=== PATIENT | female | born 1995 | race African-American/Black ===

== ENCOUNTER 2019-04-25 03:12 | Inpatient (IN) ==
[2019-04-25 03:29] VITALS: BMI 24.1
[2019-04-25 03:29] LABS: BILIRUBIN,URINE NEGATIVE (NEGATIVE); BLOOD/HEMOGLOBIN,URINE 1+ (NEGATIVE); GLUCOSE, URINE NEGATIVE (NEGATIVE); KETONES,URINE 1+ (NEGATIVE); LEUKOCYTE ESTERASE ,URINE 3+ (NEGATIVE); NITRITES,URINE NEGATIVE (NEGATIVE); PROTEIN,URINE 1+ (NEGATIVE); UROBILINOGEN,URINE NORMAL (NORMAL)
[2019-04-25 03:34] LABS: APPEARANCE,URINE CLEAR (CLEAR); BACTERIA,URINE NEGATIVE /HPF (NEGATIVE); COLOR,URINE YELLOW (YELLOW); SQUAMOUS EPITHELIAL CELL,UR FEW /HPF (NEGATIVE)
[2019-04-25] MEDS ORDERED: D5LR 1L W PITOCIN 10 UNITS/L 10 UNITS/1,000 ML BAG IV PRN (04:06)
[2019-04-25] MEDS ORDERED: LR 1000 ML IV 1,000 ML ONE (04:22)
[2019-04-25] MEDS ORDERED: AMPICILLIN VIAL 2 GRAM ONE (04:23)
[2019-04-25] MEDS ORDERED: FENTANYL INJ 100 mcg ONE (04:23)
[2019-04-25] MEDS ORDERED: NS 100 ML IV 100 ML ONE (04:23)
[2019-04-25] MEDS ORDERED: NAROPIN EPIDURAL 0.2% + FENTANYL 90MCG 60 ML EPI ONE (04:23)
[2019-04-25] MEDS ORDERED: D5 1/2 NS 1L W PITOCIN 20 UNITS/L 20 UNITS/1,000 ML BAG IV ONE (04:24)
[2019-04-25] MEDS ORDERED: PITOCIN ONE (04:24)
[2019-04-25] MEDS ORDERED: XYLOCAINE 2% and EPINEPHRINE 1:100,000 ONE (04:26)
[2019-04-25] MEDS ORDERED: XYLOCAINE 1 % (PLAIN) ONE (04:26)
[2019-04-25 04:45] LABS: BASOPHILS # (AUTO) 0.1 X10^3/uL (0.0-0.1); BASOPHILS % (AUTO) 0.4 % (0.2-1.0); EOSINOPHILS # (AUTO) 0.2 x10^3/uL (0.0-0.2); EOSINOPHILS % (AUTO) 1.3 % (0.9-2.9); HEMATOCRIT 34.8 % (36.0-47.0); HEMOGLOBIN 11.3 g/dL (12.0-16.0); LYMPHOCYTES # (AUTO) 2.2 X10^3/uL (1.3-2.9); LYMPHOCYTES % (AUTO) 18.2 % (21.0-51.0); MEAN CORPUSCULAR HEMOGLOBIN 27.4 pg (27.0-34.0); MEAN CORPUSCULAR HGB CONC 32.5 g/dL (33.0-35.0); MEAN CORPUSCULAR VOLUME 84.3 fL (80.0-100.0); MEAN PLATELET VOLUME 7.6 fL (7.4-11.0); MONOCYTES # (AUTO) 1.1 x10^3/uL (0.3-0.8); MONOCYTES % (AUTO) 8.9 % (0.0-13.0); NEUTROPHILS # (AUTO) 8.4 x10^3/uL (2.2-4.8); NEUTROPHILS % (AUTO) 71.2 % (42.0-75.0); PLATELET COUNT 216 X10^3/uL (150.0-450.0); RED BLOOD COUNT 4.13 X10^6/uL (3.5-5.4); RED CELL DISTRIBUTION WIDTH 13.4 % (11.6-16.5); WHITE BLOOD COUNT 11.8 X10^3/uL (3.6-10.0)
[2019-04-25 04:53] LABS: BLOOD UREA NITROGEN 6 mg/dL (7-18); CALCIUM 9.3 mg/dL (8.5-10.1); CARBON DIOXIDE 26.6 mmol/L (21-32); CHLORIDE 103 mmol/L (98-107); SODIUM 138 mmol/L (136-145); eGFR NON BLACK RACES > 60 (>60)
[2019-04-25] MEDS ORDERED: D5 1/2 NS 1000 ML 1,000 ML IV SCH (05:00)
[2019-04-25] MEDS ORDERED: AMPICILLIN VIAL 2 GRAM 2 G in NS 100 ML IV + SPIKE MINIBAG* 100 ML IV SCH (05:00)
[2019-04-25] MEDS: D5 1/2 NS 1000 ML 1,000 ML with PITOCIN 20 UNITS IV SCH ×4 (06:10→23:12)
[2019-04-25] MEDS ORDERED: PHENERGAN INJ 25 MG IM PRN (06:18)
--- NOTE | 2019-04-25 06:24 | DR.OB ---
OB Quick Note - Assessment/Plan Assessment/Plan: Delivery Note COLLECTION MANAGER 04/25/19 at 6:05am Patient complete and pushing. Head delivered over intact perineum. Nuchal cord x 1 reduced. Compound presentation with right hand at face. Nose and mouth bulb suctioned. Body delivered over intact perineum. Cord clamped x 2 and cut. handed to attendant. Cord sent for gases. Placenta delivered spontaneously / intact / 3 vessel cord. No CVX / vaginal / perineal tears noted. Viable male infant, VTX/OA, wt=6'0" and 9/9, stable to NBN. Mother stable to RR. [id number].
[2019-04-25] MEDS ORDERED: ADACEL or BOOSTRIX TDaP VACCINE IM ONE (07:51)
[2019-04-25] MEDS ORDERED: DERMOPLAST SPRAY TOP PRN (07:51)
[2019-04-25] MEDS ORDERED: AMBIEN PO PRN (07:51)
[2019-04-25] MEDS ORDERED: MILK OF MAGNESIA PO PRN (07:51)
[2019-04-25] MEDS ORDERED: AMPICILLIN VIAL 1 GRAM 1 G in NS 50 ML IV + SPIKE MINIBAG* 50 ML IV SCH (09:00)
[2019-04-25] MEDS: ZANTAC PO SCH ×2 (09:48→22:43)
[2019-04-25] MEDS: PRENATAL PLUS PO SCH (09:49)
[2019-04-25] MEDS: MOTRIN TAB 800 MG PO PRN ×2 (09:49→20:31)
[2019-04-25] MEDS ORDERED: BETADINE SOLN TOP PRN (21:24)
[2019-04-26 05:29] LABS: HEMATOCRIT 30.8 % (36.0-47.0); HEMOGLOBIN 9.8 g/dL (12.0-16.0)
[2019-04-26] MEDS: MOTRIN TAB 800 MG PO PRN ×2 (06:32→22:00)
[2019-04-26] MEDS: D5 1/2 NS 1000 ML 1,000 ML with PITOCIN 20 UNITS IV SCH ×2 (06:33)
[2019-04-26] MEDS: PRENATAL PLUS PO SCH (10:10)
[2019-04-26] MEDS: ZANTAC PO SCH ×2 (10:10→20:40)
[2019-04-26] MEDS: FERROUS GLUCONATE PO SCH (17:33)
[2019-04-26] MEDS: COLACE CAP 100 MG PO SCH (20:40)
[2019-04-27] MEDS: FERROUS GLUCONATE PO SCH (06:07)
[2019-04-27] MEDS: ZANTAC PO SCH (08:57)
[2019-04-27] MEDS: PRENATAL PLUS PO SCH (08:57)
[2019-04-27] MEDS: COLACE CAP 100 MG PO SCH (08:57)
[2019-04-27 11:27] VITALS: BP 107/73
== END 2019-04-27 13:00 | disposition home or self-care (01) | DRG 807 ==
LOC: ER 03:12 → LD 04:00 → MED/SURG 07:49
PROVIDERS: ADMIT Specialist; ATTEND Specialist
DX: Z3A.38 38 weeks gestation of pregnancy; Z37.0 Single live birth; O80 Encounter for full-term uncomplicated delivery
CPT/HCPCS: 36415; 59409; 80048; 80307; 81001; 85014; 85018; 85025; 86592; 86850; 86900; 86901; 99284; A4216; A4222; S0197; G0434; J0290; J2001; J2590; J3010; J7050; J7120; S5010

== ENCOUNTER 2021-01-28 15:50 | Inpatient (IN) ==
[2021-01-28 15:54] VITALS: BMI 24.4
[2021-01-28] MEDS ORDERED: NS 100 ML IV 100 ML IV ONE (16:05)
[2021-01-28] MEDS ORDERED: AMPICILLIN VIAL 2 GRAM ONE (16:05)
[2021-01-28] MEDS ORDERED: REGLAN INJ 10 MG VIAL IVP PRN (16:10)
[2021-01-28] MEDS ORDERED: PHENERGAN INJ 25 MG IM PRN ×2 (16:10→18:16)
[2021-01-28] MEDS ORDERED: PITOCIN IVP ONE (16:10)
[2021-01-28] MEDS ORDERED: D5LR 1L W PITOCIN 10 UNITS/L 10 UNITS/1,000 ML BAG IV PRN (16:10)
[2021-01-28] MEDS ORDERED: STADOL INJ IVP PRN (16:12)
[2021-01-28] MEDS ORDERED: LR 1000 ML IV 1,000 ML IV ONE (16:15)
[2021-01-28] MEDS ORDERED: BETADINE SOLN ONE (16:15)
[2021-01-28] MEDS ORDERED: D5 1/2 NS 1000 ML 1,000 ML IV ONE (16:15)
[2021-01-28] MEDS ORDERED: FENTANYL INJ 100 mcg ONE (16:16)
[2021-01-28] MEDS ORDERED: D5 1/2 NS 1L W PITOCIN 20 UNITS/L 20 UNITS/1,000 ML BAG IV ONE (16:16)
[2021-01-28] MEDS ORDERED: NAROPIN EPIDURAL 0.2% 100 ML ONE (16:17)
[2021-01-28 16:42] LABS: BASOPHILS # (AUTO) 0.1 X10^3/uL (0.0-0.1); BASOPHILS % (AUTO) 0.6 % (0.2-1.0); EOSINOPHILS # (AUTO) 0.1 x10^3/uL (0.0-0.2); EOSINOPHILS % (AUTO) 0.7 % (0.9-2.9); HEMATOCRIT 30.4 % (36.0-47.0); HEMOGLOBIN 9.8 g/dL (12.0-16.0); LYMPHOCYTES # (AUTO) 2.5 X10^3/uL (1.3-2.9); LYMPHOCYTES % (AUTO) 15.4 % (21.0-51.0); MEAN CORPUSCULAR HEMOGLOBIN 27.6 pg (27.0-34.0); MEAN CORPUSCULAR HGB CONC 32.1 g/dL (33.0-35.0); MEAN CORPUSCULAR VOLUME 85.9 fL (80.0-100.0); MEAN PLATELET VOLUME 8.1 fL (7.4-11.0); MONOCYTES # (AUTO) 1.5 x10^3/uL (0.3-0.8); MONOCYTES % (AUTO) 9.1 % (0.0-13.0); NEUTROPHILS # (AUTO) 12.3 x10^3/uL (2.2-4.8); NEUTROPHILS % (AUTO) 74.2 % (42.0-75.0); PLATELET COUNT 231 X10^3/uL (150.0-450.0); RED BLOOD COUNT 3.54 X10^6/uL (3.5-5.4); RED CELL DISTRIBUTION WIDTH 13.2 % (11.6-16.5); WHITE BLOOD COUNT 16.5 X10^3/uL (3.6-10.0)
[2021-01-28 16:49] LABS: BLOOD UREA NITROGEN 10 mg/dL (7-18); CALCIUM 8.2 mg/dL (8.5-10.1); CARBON DIOXIDE 22.7 mmol/L (21-32); CHLORIDE 106 mmol/L (98-107); CREATININE 0.75 mg/dL (0.55-1.02); SODIUM 140 mmol/L (136-145); eGFR NON BLACK RACES > 60 (>60)
[2021-01-28] MEDS: FENTANYL INJ 100 mcg ONE ×2 (16:51→17:05)
[2021-01-28] MEDS ORDERED: AMPICILLIN VIAL 2 GRAM 2 G in NS 100 ML IV + SPIKE MINIBAG* 100 ML IV SCH (17:00)
[2021-01-28 17:20] LABS: BILIRUBIN,URINE NEGATIVE (NEGATIVE); BLOOD/HEMOGLOBIN,URINE 3+ (NEGATIVE); GLUCOSE, URINE NEGATIVE (NEGATIVE); KETONES,URINE 2+ (NEGATIVE); LEUKOCYTE ESTERASE ,URINE 1+ (NEGATIVE); NITRITES,URINE NEGATIVE (NEGATIVE); PROTEIN,URINE 1+ (NEGATIVE); UROBILINOGEN,URINE 1+ (NORMAL)
[2021-01-28 17:33] LABS: APPEARANCE,URINE SLIGHTLY HAZY (CLEAR); COLOR,URINE DARK YELLOW (YELLOW)
[2021-01-28 17:35] LABS: AMORPHOUS SEDIMENT,UR 1+ /HPF (NEGATIVE); BACTERIA,URINE NEGATIVE /HPF (NEGATIVE); SQUAMOUS EPITHELIAL CELL,UR FEW /HPF (NEGATIVE)
[2021-01-28 17:51] LABS: AMNISURE ROM TEST THERE IS A RUPTURE (NO RUPTURE)
[2021-01-28] MEDS ORDERED: MOTRIN TAB 800 MG PO PRN (18:16)
[2021-01-28] MEDS ORDERED: DERMOPLAST PAIN RELIEF SPRAY TOP PRN (18:37)
[2021-01-28] MEDS ORDERED: MILK OF MAGNESIA PO PRN (18:37)
[2021-01-28] MEDS ORDERED: AMBIEN PO PRN (18:37)
[2021-01-28] MEDS ORDERED: D5 1/2 NS 1000 ML 1,000 ML with PITOCIN 20 UNITS IV SCH ×2 (19:00)
--- NOTE | 2021-01-28 19:06 | DR.OB ---
OB Quick Note - Assessment/Plan Assessment/Plan: Delivery Note BUILDING CODE INSPECTOR 01/28/21 at 5:38pm Patient complete and pushing. Head delivered over intact perineum. No nuchal cord. Nose and mouth bulb suctioned. Body delivered over intact perineum. Cord clamped x 2 and cut. handed to attendant. Cord sent for gases. Placenta delivered spontaneously / intact / 3 vessel cord. No CVX / vaginal / perineal tears noted. Viable female , VTX/OA, wt=6'6" and 9/9, stable to NBN. Mother stable to RR. [id number].
[2021-01-29] MEDS ORDERED: MOTRIN TAB 800 MG PO ONE (04:16)
[2021-01-29] MEDS: MOTRIN TAB 800 MG PO PRN ×2 (04:20→13:35)
[2021-01-29 05:04] LABS: HEMATOCRIT 34.5 % (36.0-47.0); HEMOGLOBIN 11.1 g/dL (12.0-16.0)
[2021-01-29] MEDS ORDERED: DEPO-PROVERA CONTRACEPTIVE INJ IM ONE (07:28)
[2021-01-29] MEDS ORDERED: PRENATAL PLUS PO SCH (09:00)
[2021-01-29 16:01] VITALS: BP 129/75
== END 2021-01-29 20:10 | disposition home or self-care (01) | DRG 807 ==
LOC: ER 15:50 → LD 16:06 → MED/SURG 18:37
PROVIDERS: ADMIT Specialist; ATTEND Specialist
DX: B95.1 Streptococcus, group B, as the cause of diseases classified elsewhere; Z3A.37 37 weeks gestation of pregnancy; O60.14X0 Preterm labor third trimester with preterm delivery third trimester, not applicable or unspecified; Z37.0 Single live birth; O99.824 Streptococcus B carrier state complicating childbirth